=== PATIENT | female | born 1970 | race Hispanic/Latino ===

== ENCOUNTER 2018-07-11 15:02 | Emergency (ER) | payer BC ==
--- NOTE | 2018-07-11 16:15 | RAD REPORT ---
EXAM DESCRIPTION: RAD - Lumbar Spine 3 Views - 07/11/2018 4:08 pm CLINICAL HISTORY: Back pain FINDINGS: The alignment of the lumbar spine is satisfactory. No fracture or dislocation is seen. Moderate spondylosis involves L3-4 consisting disc space narrowing, subchondral sclerosis and osteoph ytes
[2018-07-11] MEDS ORDERED: HYDROCODONE/APAP 10/325 TAB ONE (16:21)
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
[2018-07-11 17:08] VITALS: TEMP 97.8
[2018-07-11 17:10] VITALS: BP 150/90; O2SAT 100
== END 2018-07-11 16:32 | disposition home or self-care (01) ==
LOC: ER 15:02
DX: S39.012A Strain of muscle, fascia and tendon of lower back, initial encounter (principal); V49.40XA Driver injured in collision with unspecified motor vehicles in traffic accident, initial encounter; Z79.82 Long term (current) use of aspirin; Z88.5 Allergy status to narcotic agent; I10 Essential (primary) hypertension; F17.210 Nicotine dependence, cigarettes, uncomplicated
CPT/HCPCS: 72100; 99284